=== PATIENT | female | born 1955 | race Caucasian/White ===

== ENCOUNTER 2017-04-18 07:59 | Outpatient (CLI) | payer BC | END 2017-04-18 08:00 | disposition home or self-care (01) | LOC: BICMAMMO 07:59 | DX: Z12.31 Encounter for screening mammogram for malignant neoplasm of breast (principal) | CPT/HCPCS: 77063; 77067; G0202 ==

== ENCOUNTER 2017-05-20 13:51 | Outpatient (CLI) | payer BC | END 2017-05-20 13:52 | disposition home or self-care (01) | LOC: BICMAMMO 13:51 | DX: R92.8 Other abnormal and inconclusive findings on diagnostic imaging of breast (principal) | CPT/HCPCS: G0206-RT; G0279 ==

== ENCOUNTER 2017-09-13 12:09 | Outpatient (CLI) | payer BC | END 2017-09-13 12:10 | disposition home or self-care (01) | LOC: BICULT 12:09 | PROVIDERS: ATTEND Urology | DX: R31.0 Gross hematuria (principal); Q61.3 Polycystic kidney, unspecified; Z88.5 Allergy status to narcotic agent | CPT/HCPCS: 76770 ==

== ENCOUNTER 2017-12-06 07:52 | Outpatient (CLI) | payer BC ==
--- NOTE | 2017-12-06 09:40 | MRI ---
MRI LEFT ANKLE WITHOUT CONTRAST: Date: 12/06/17 HISTORY: M76.72, peroneal tendinitis of left lower extremity. COMPARISON: None. FINDINGS: Ligaments: The AITFL and PITFL are intact. ATFL is intact, as well as the PTFL and CFL. Superficial and deep del toid ligaments are intact. Tendons: Achilles tendon is intact. Trace retrocalcaneal bursa effusion. There is mild peroneal tenosynovitis at the level of the lateral malleolus. The peroneal groove has n ormal concavity posteriorly. There is a subtle interstitial tear of the peroneus brevis tendon 2.0 cm below the lateral malleolar tip before reconstituting. Trace fluid in posterior tibial tendon sheath. Extensor tendons are intact. Bones: Along the medial talar dome is a subchondral cyst with extensive overlying cartilage fraying. There i s abnormal stress edema within the fourth metatarsal head proximal diaphysis, as well as third metata rsal head. There appears to be sequelae of a combination of degenerative changes and stress edema. Th ere are advanced degenerative changes of the fourth, third, and second tarsometatarsal joints. Lisfranc interval appears to be maintained. There is advanced edema within the medial, intermediate, and lateral cuneiforms. IMPRESSION: 1. Mild peroneal tenosynovitis with a longitudinal split tear of the peroneus brevis tendon approxim ately 2.0 cm distal to the lateral malleolus for a short length before reconstituting. 2. Advanced degenerative changes of the midfoot. 3. Possible stress edema of the third and fourth metatarsal diaphyses versus reactive change from de generation. 4. Subcortical cyst of the medial talar dome with advanced overlying cartilage fraying. POS: [facility]
== END 2017-12-06 07:53 | disposition home or self-care (01) ==
LOC: SCSMRI 07:52
PROVIDERS: ATTEND Orthopaedic Surgery
DX: M76.72 Peroneal tendinitis, left leg (principal); S86.312A Strain of muscle(s) and tendon(s) of peroneal muscle group at lower leg level, left leg, initial encounter; M65.872 Other synovitis and tenosynovitis, left ankle and foot; M19.072 Primary osteoarthritis, left ankle and foot; M85.672 Other cyst of bone, left ankle and foot

== ENCOUNTER 2018-04-01 15:36 | Emergency (ER) | payer BC ==
[2018-04-01] MEDS ORDERED: Lidocaine Viscous Sol 2% 15 ml UD Cup ONE (17:10)
[2018-04-01] MEDS ORDERED: traMADol HCl 50 MG TAB ONE (17:10)
[2018-04-01] MEDS ORDERED: Mag-Al Plus 1200 MG/1200 MG/120 MG/30 ML UDCUP ONE (17:10)
== END 2018-04-01 17:54 | disposition home or self-care (01) ==
LOC: SCSER 15:36
DX: T63.441A Toxic effect of venom of bees, accidental (unintentional), initial encounter (principal); K21.9 Gastro-esophageal reflux disease without esophagitis; I10 Essential (primary) hypertension; Z79.899 Other long term (current) drug therapy; Z79.82 Long term (current) use of aspirin
CPT/HCPCS: 99282

== ENCOUNTER 2018-05-24 09:30 | Outpatient (CLI) | payer BC | END 2018-05-24 09:31 | disposition home or self-care (01) | LOC: BICMAMMO 09:30 | DX: Z12.31 Encounter for screening mammogram for malignant neoplasm of breast (principal); R92.1 Mammographic calcification found on diagnostic imaging of breast | CPT/HCPCS: 77063; 77067 ==

== ENCOUNTER 2018-10-17 13:54 | Outpatient (CLI) | payer MEDICARE, BC ==
--- NOTE | 2018-10-17 15:25 | ULT ---
RENAL ULTRASOUND: HISTORY: Polycystic kidney disease. COMPARISON: None. TECHNIQUE: Sagittal and transverse imaging of the kidneys is performed. FINDINGS: The right kidney measures 21.1 x 8.2 x 13.4 cm. The left kidney measures 9.5 x 13.4 x 22.2 cm. Ther e are multiple anechoic foci replacing most of the normal cortical echotexture bilaterally. Represen tative cysts in the right kidney measure 6.6 x 6.4 x 6.5 cm in the upper pole and 8.6 x 7.3 x 9.0 cm in the lower pole. [employer] cysts in the left kidney measure 11.8 x 8.4 x 12.2 cm in the upper pole and 10.2 x 6.7 x 9.0 cm in the lower pole. The bladder is decompressed and cannot be adequatel y assessed. IMPRESSION: Bilateral renal cortical cysts. POS: [facility]
== END 2018-10-17 13:55 | disposition home or self-care (01) ==
LOC: SCSULT 13:54
PROVIDERS: ATTEND Urology
DX: Q61.3 Polycystic kidney, unspecified (principal)
CPT/HCPCS: 76770

== ENCOUNTER 2018-10-20 14:12 | Outpatient (CLI) | payer MEDICARE, BC ==
[2018-10-20 15:14] LABS: Bilirubin Negative (Negative); Blood, Urine Negative (Negative); Clarity Clear (Clear); Glucose, Urine (Dipstick) Negative (Negative); Leukocyte Trace (Negative); Nitrite Negative (Negative); Protein, Urine (Dipstick) Negative (Neg-Trace); Urobilinogen 0.2 mg/dL (0.2-1.0); pH, Urine 5.5 (5.0-9.0)
[2018-10-20 15:21] LABS: Bacteria/HPF None Seen HPF (None Seen); RBC/HPF 0-3 HPF (0-3); Squamous Epithelial 0-3 HPF (0-3)
--- NOTE | 2018-10-20 16:05 | MRI ---
MRI Low Ext No Jt Rt W WO Con HISTORY: Right tib-fib pain. The area of concern was marked along the anterior aspect of the mid calf directly anterior to the anterior compartment. FINDINGS: The marrow signal change within the tibia and fibula is normal. There is no evidence of any muscle ed debra. No signs of any muscle atrophy or any type of denervation process. Subcutaneous tissue appears unremarkable. No areas of abnormal contrast enhancement. A knee prosthesis is noted. IMPRESSION: Unremarkable right tib-fib MRI study.
== END 2018-10-20 14:13 | disposition home or self-care (01) ==
LOC: SCSMRI 14:12
PROVIDERS: ATTEND Orthopaedic Surgery
DX: C40.21 Malignant neoplasm of long bones of right lower limb (principal); R31.0 Gross hematuria
CPT/HCPCS: 81001; 82565

== ENCOUNTER 2019-02-10 09:00 | Outpatient (CLI) | payer MEDICARE, BC ==
--- NOTE | 2019-02-10 11:42 | RAD ---
LEFT HIP TWO VIEWS: HISTORY: Fall. Left hip pain. FINDINGS: No definite fracture or dislocation is identified. POS: [facility]
--- NOTE | 2019-02-10 11:43 | RAD ---
AP PELVIS: HISTORY: Fall. Left hip pain. FINDINGS: No fracture or dislocation is identified. POS: [facility]
--- NOTE | 2019-02-10 11:44 | RAD ---
LEFT ELBOW FOUR VIEWS: HISTORY: Fall. Left elbow pain. FINDINGS: No definite fracture or dislocation is seen. If symptoms do not improve a follow-up exam should be obtained in 3-5 days. POS: [facility]
== END 2019-02-10 09:01 | disposition home or self-care (01) ==
LOC: SCSRAD 09:00
PROVIDERS: ATTEND Nurse Practitioner Family
DX: W19.XXXA Unspecified fall, initial encounter (principal)
CPT/HCPCS: 72170

== ENCOUNTER 2019-05-30 09:02 | Outpatient (CLI) | payer MEDICARE, BC ==
--- NOTE | 2019-05-30 09:36 | MMO ---
Bilateral MAMMO Bilat Screen [facility]. CLINICAL HISTORY: Patient is 63 years old and is seen for screening. The patient has no family history of breast cancer. The patient has no personal history of cancer. VIEWS: The views performed were: bilateral craniocaudal with tomosynthesis and bilateral mediolateral oblique with tomosynthesis. FILMS COMPARED: The present examination has been compared to prior imaging studies performed at [facility] on 04/18/2017, 05/20/2017 and 05/24/2018, and at [facility] on 04/20/2016. This study has been interpreted with the assistance of computer-aided detection. MAMMOGRAM FINDINGS: The breasts are heterogeneously dense, which could obscure a lesion on mammography. There are stable benign appearing calcifications seen in both breasts. There are no suspicious masses, suspicious calcifications, or new areas of architectural distortion. IMPRESSION: THERE IS NO MAMMOGRAPHIC EVIDENCE OF MALIGNANCY. A ROUTINE FOLLOW-UP MAMMOGRAM IN 1 YEAR IS RECOMMENDED. THE RESULTS OF THIS EXAM WERE SENT TO THE PATIENT. ACR BI-RADS Category 2 - Benign finding MAMMOGRAPHY NOTE: 1. A negative mammogram report should not delay a biopsy if a dominant of clinically suspicious mass is present. 2. Approximately 10% to 15% of breast cancers are not detected by mammography. 3. Adenosis and dense breasts may obscure an underlying neoplasm. Reported by: KATTY OVALLES MD Electonically Signed: [id number]
== END 2019-05-30 09:03 | disposition home or self-care (01) ==
LOC: BICMAMMO 09:02
PROVIDERS: ATTEND Family Medicine
DX: Z12.31 Encounter for screening mammogram for malignant neoplasm of breast (principal)
CPT/HCPCS: 77063; 77067

== ENCOUNTER 2020-06-03 13:13 | Outpatient (CLI) | payer MEDICARE, BC ==
--- NOTE | 2020-06-03 13:39 | MMO ---
Bilateral MAMMO Bilat Screen [facility]. CLINICAL HISTORY: Patient is 64 years old and is seen for screening. The patient has no family history of breast cancer. The patient has no personal history of cancer. VIEWS: The views performed were: bilateral craniocaudal with tomosynthesis and bilateral mediolateral oblique with tomosynthesis. FILMS COMPARED: The present examination has been compared to prior imaging studies performed at [facility] on 04/18/2017, 05/20/2017, 05/24/2018 and 05/30/2019. This study has been interpreted with the assistance of computer-aided detection. MAMMOGRAM FINDINGS: The breasts are heterogeneously dense, which could obscure a lesion on mammography. There are stable benign appearing calcifications seen in both breasts. There are no suspicious masses, suspicious calcifications, or new areas of architectural distortion. IMPRESSION: THERE IS NO MAMMOGRAPHIC EVIDENCE OF MALIGNANCY. A ROUTINE FOLLOW-UP MAMMOGRAM IN 1 YEAR IS RECOMMENDED. THE RESULTS OF THIS EXAM WERE SENT TO THE PATIENT. ACR BI-RADS Category 2 - Benign finding MAMMOGRAPHY NOTE: 1. A negative mammogram report should not delay a biopsy if a dominant of clinically suspicious mass is present. 2. Approximately 10% to 15% of breast cancers are not detected by mammography. 3. Adenosis and dense breasts may obscure an underlying neoplasm. Reported by: JAVON THAKKAR MD Electonically Signed: [id number]
== END 2020-06-03 13:14 | disposition home or self-care (01) ==
LOC: BICMAMMO 13:13
PROVIDERS: ATTEND Family Medicine
DX: Z12.31 Encounter for screening mammogram for malignant neoplasm of breast (principal)
CPT/HCPCS: 77063; 77067

== ENCOUNTER 2022-06-23 09:19 | Outpatient (CLI) | payer MEDICARE, BC | END 2022-06-23 09:20 | disposition home or self-care (01) | LOC: BICMAMMO 09:19 | PROVIDERS: ATTEND Family Medicine | DX: N64.89 Other specified disorders of breast (principal) | CPT/HCPCS: 77065; G0279 ==

== ENCOUNTER 2022-12-23 12:51 | Outpatient (CLI) | payer MEDICARE, BC | END 2022-12-23 12:52 | disposition home or self-care (01) | LOC: SCSMRI 12:51 | PROVIDERS: ATTEND Family Medicine | DX: M51.16 Intervertebral disc disorders with radiculopathy, lumbar region (principal); M51.17 Intervertebral disc disorders with radiculopathy, lumbosacral region; M51.15 Intervertebral disc disorders with radiculopathy, thoracolumbar region; M48.061 Spinal stenosis, lumbar region without neurogenic claudication | CPT/HCPCS: 72148 ==